=== PATIENT | female | born 2005 | race Caucasian/White ===

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

== ENCOUNTER 2024-11-12 17:11 | Emergency (ER) | payer BC, SELFPAY ==
[2024-11-12 17:13] VITALS: BP 135/88; PULSE 82; RESP 14; TEMP 36.5; O2SAT 98
--- NOTE | 2024-11-12 17:26 | ED_ITS ---
HPI - Wound/Laceration 2 General: Chief Complaint: Wound/Laceration Stated Complaint: cut on lft calf Time Seen by Provider: 11/12/24 17:18 Source: patient and family Mode of arrival: ambulatory Limitations: no limitations History of Present Illness: Patient is a 19-year-old female presents to ED today for evaluation of lacerations to her left lower extremity that she sustained yesterday evening after she was walking outside and accidentally cut it on a fence. Last tetanus is unknown. Onset (ago): day(s) (yesterday evening) Extremity Location: Left: lower leg Place: outdoors Patient tetanus UTD: No Context: accidental Associated symptoms: Reports no associated symptoms Treatments prior to arrival: bandage Related Data Previous Rx's ?Medication ?Instructions ?Recorded albuterol sulfate 90 mcg/actuation 2 puff inhalation Q 6H PRN 05/04/22 aerosol inhaler shortness of breath or wheez ing #8.5 grams montelukast 10 mg tablet 10 mg PO DAILY #90 tabs 09/17 (Singulair) cephalexin 500 mg capsule 500 mg PO Q6H 7 days #28 cap s 11/12/24 Allergies Allergy/AdvReac Type Severity Reaction Status Date / Time Penicillins Allergy rash Verified 11/12/24 17:17 Review of Systems 2 Musc: Reports: extremity pain; Denies: extremity swelling Skin/Breast: Reports: other (lacerations left lower leg) Neuro: Denies: numbness in extremities, weakness in extremities, sensory changes or difficulty walking PFSH ED 2 PFSH: Medical History Asthma due to seasonal allergies Social History Smoking and tobacco/nicotine status: never used tobacco/nicotine Alcohol intake: never Substance/Drug Use: never Physical Exam 2 Const: COMMON NORMALS: no acute distress, average body habitus, no limitations, healthy appearing, alert and well nourished Extremity: COMMON NORMALS: full ROM, capillary refill normal, no clubbing, cyanosis or edema, no calf tenderness and no pedal edema GENERAL: Yes normal exam except as noted LEFT LOWER EXTREMITY: Yes lower leg EXTREMITY IMAGE (FRONT): 1. 2. two lacerations extending to subq to lateral L lower leg Neuro: COMMON NORMALS: moves all extremities, no focal motor deficits, no sensory deficits noted and gait normal SENSORIUM/ORIENTATION: Yes alert Skin: TRAUMA: laceration Procedures Laceration Laceration 1: Site: lower extremity Side (If applicable): left Size (cm): 3.5 Description: linear Depth: simple, single layer Local Anesthetic: lidocaine 2% Amount of anesthesia used (mL): 2.5 Pre-repair: wound explored and irrigated extensively Skin layer closed with: nylon Size (cm): 4-0 Number of sutures: 6 Technique: simple, interrupted Laceration 2: Site: lower extremity Side (If applicable): left Size (cm): 4 Description: linear Depth: simple, single layer Local Anesthetic: lidocaine 2% Amount of anesthesia used (mL): 2.5 Pre-repair: wound explored and irrigated extensively Skin layer closed with: nylon Size (cm): 4-0 Number of sutures: 8 Technique: simple, interrupted Course 2 Vital Signs: Vital signs: Vital Signs Temperature 97.7 F 11/12/24 17:13 Pulse Rate 82 11/12/24 17:13 Respiratory Rate 14 11/12/24 17:13 Blood Pressure 135/88 11/12/24 17:13 Pulse Oximetry 98 11/12/24 17:13 MDM - Wound/Laceration Medical Decision Making Wounds were copiously irrigated and repaired as documented. She will be placed on prophylactic antibiotics. Tetanus updated. Wound care/infection precautions discussed. Differential Diagnosis Likely laceration Medical Records I reviewed the patient's medical records. No radiology studies performed this visit Discharge Plan Discharge Patient Disposition: Home Clinical Impression: Laceration of left lower extremity Qualifiers: Encounter type: initial encounter Qualified Code(s): S81.812A - Laceration without foreign body, left lower leg, initial encounter Condition: Stable Prescriptions: New cephalexin 500 mg capsule 500 mg PO Q6H 7 Days Qty: 28 0RF Discontinued sulfamethoxazole-trimethoprim [Bactrim DS] 800-160 mg tablet 1 tab PO BID Qty: 14 0RF No Action albuterol sulfate 90 mcg/actuation HFA aerosol inhaler 2 puff inhalation Q6H PRN (Reason: shortness of breath or wheezing) Qty: 8.5 3RF montelukast [Singulair] 10 mg tablet 10 mg PO DAILY Qty: 90 2RF Discharge Orders: Discharge ED (Routine); Ordered 11/12/24 Ordered By: Fatuma Mccarthy Referrals: Ronna Johnson MD [Primary Care Provider] - Patient Instructions: Laceration (DC) Activity Restrictions/Additional Instructions: Keep wound/laceration clean with warm soap and water twice daily. Monitor for signs of infection such as redness, swelling, increased pain, or drainage. Please seek medical re-evaluation if these occur. If you received sutures today these will need to be removed (unless you were told by the provider that they are absorbable). The provider should have discussed with you the length of time until removal-10 days. Print Language: Mauritian Coding Level of Care Code ED Lumber Material Handler for Chuckie Weiss
[2024-11-12] MEDS: tetanus-dipt-pertussis 0.5 mL SDV IM (17:50)
== END 2024-11-12 18:27 | disposition home or self-care (01) ==
PROVIDERS: Emergency Provider Physician Assistant; Family Provider Family Medicine; PCP Family Medicine
DX: S81.812A Laceration without foreign body, left lower leg, initial encounter (principal); X58.XXXA Exposure to other specified factors, initial encounter; Z23 Encounter for immunization
CPT/HCPCS: 12002; 90471; 90715; 99283